=== PATIENT | male | born 1955 | race African-American/Black ===

== ENCOUNTER → 2020-09-05 14:48 | Outpatient (BNVA) | payer MEDICARE, MEDICAID, SELFPAY | PROVIDERS: PCP Internal Medicine; Visit Provider Surgery Vascular Surgery | DX: N18.6 End stage renal disease (principal) | CPT/HCPCS: 99202 ==

== ENCOUNTER 2021-01-22 06:39 | Outpatient (REF) | payer MEDICARE, MEDICAID, SELFPAY | END 2021-01-22 06:40 | disposition home or self-care (01) | LOC: HO.MMNH1L 06:39 | PROVIDERS: Visit Provider Family Medicine | DX: Z13.89 Encounter for screening for other disorder (principal) ==

== ENCOUNTER 2021-02-03 11:56 | Emergency (ER) | payer OTHER, SELFPAY ==
[2021-02-03 12:04] VITALS: BP 125/75; BP 137/55; PULSE 72; PULSE 82; RESP 16; TEMP 36.7; O2SAT 95; O2SAT 99; BMI 48.7
[2021-02-03 12:23] LABS: Glucose, Whole Blood 307 mg/dL (60-115)
--- NOTE | 2021-02-03 12:35 | PC.NURSE ---
called [facility] dialysis center in [place]. [facility] admin joe states they are unable to provide dialysis to pt. Provider aware.
--- NOTE | 2021-02-03 12:53 | ED.WOUNDLAC ---
HPI - Wound/Laceration General Chief Complaint: Wound/Laceration <Nickie Calvillo CHRISTIANA - Last Filed: 02/03/21 18:29> Stated Complaint: sore on backside <Nickie Pierresarah CHRISTIANA - Last Filed: 02/03/21 18:29> Time Seen by Provider: 02/03/21 12:20 <Nickie Pierresarah CHRISTIANA - Last Filed: 02/03/21 18:29> Source: patient, EMS, RN notes reviewed and old records reviewed <Nickie PierreoCHRISTIANA - Last Filed: 02/03/21 18:29> Mode of arrival: EMS <Nickie PierreoCHRISTIANA - Last Filed: 02/03/21 18:29> Limitations: no limitations <CHRISTIANA Damon - Last Filed: 02/03/21 18:29> History of Present Illness HPI narrative: 65-year-old with past medical history of end-stage renal disease, patient was on the way to dialysis via ambulance and during transport he complained of pain to his left buttock wound ulcer. Patient was brought here and missed his dialysis. He complains of left buttock pain, denies any SOB, CP or any other discomfort. <Nickie Pierresarah CHRISTIANA - Last Filed: 02/03/21 18:29> Related Data Home Medications: Home Medications Medication Instructions Recorded Confirmed allopurinol 100 mg tablet 100 mg PO DAILY 09/05/20 02/03/21 amlodipine 10 mg tablet 10 mg PO DAILY 09/05/20 02/03/21 carvedilol 12.5 mg tablet 12.5 mg PO BID 09/05/20 02/03/21 gabapentin 800 mg tablet 800 mg PO TID 09/05/20 02/03/21 levothyroxine 75 mcg capsule 75 mcg PO DAILY 09/05/20 02/03/21 sevelamer carbonate 800 mg tablet 2,400 mg PO TID 09/05/20 02/03/21 calcitriol 0.5 mcg PO DIRECTED 02/03/21 02/03/21 epoetin mary 20,000 unit SUBCUT 3XW 02/03/21 02/03/21 ergocalciferol (vitamin D2) 50,000 unit PO 7XD 02/03/21 02/03/21 insulin glargine [Lantus Solostar 24 unit SUBCUT BID 02/03/21 02/03/21 U-100 Insulin] multivitamin 1 tab PO DAILY 02/03/21 02/03/21 <CHRISTIANA Damon - Last Filed: 02/03/21 18:29> Allergies/Adverse Reactions: Allergies Allergy/AdvReac Type Severity Reaction Status Date / Time morphine [MORPHINE] Allergy Unknown RASH Verified 02/04/21 19:45 JESICA Inhibitors Allergy Unknown Verified 02/04/21 19:45 nicotine [From Nicoderm CQ] Allergy Unknown Verified 02/04/21 19:45 atorvastatin [From Lipitor] AdvReac Muscle Verified 02/04/21 19:45 cramps <STONEY Damon - Last Filed: 02/03/21 18:29> Review of Systems Review of Systems: Constitutional : No Weight loss, No Fever, No Chills, No Night Sweats, No Fatigue, No Malaise ENT/Mouth : No Hearing loss, No Ear Pain, No Nasal Congestion, No Sinus Pain, No Hoarseness, No sore throat, No Rhinorrhea, No Swallowing Difficulty Eyes: No Eye Pain, No Swelling, No Redness, No Foreign Body, No Discharge, No Vision Changes Cardiovascular : No Chest Pain, No SOB, No Dyspnea on Exertion, No Orthopnea, No Edema, No Palpitations Respiratory : No Cough, No Sputum, No Wheezing, No Smoke Exposure, No Dyspnea Gastrointestinal : No Nausea, No Vomiting, No Diarrhea, No Constipation, No abdominal Pain, No Hematochezia, No Melena Genitourinary : no irregular bleeding, No Dysuria, No Urinary Frequency, No Hematuria, No Urinary Incontinence, No Urgency, No Flank Pain, No Urinary Flow Changes, No Hesitancy Musculoskeletal : No joint pain, No Myalgias, No Joint Swelling Skin : No Skin Lesions, No rash, coccyx wound, right lower extremity wound Neuro : No Weakness, No Numbness, No Paresthesias, No Loss of Consciousness, No Dizziness, No Headache Psych : No Anxiety/Panic, No Depression, No SI/HI/AH/VH, No Social Issues, Heme/Lymph: No Bruising, No Bleeding,No Lymphadenopathy Endocrine : No Polyuria, No Polydipsia, No Temperature Intolerance <Nickie Pierresarah TANNER-BC - Last Filed: 02/03/21 18:29> Yes all other systems are reviewed and are negative <Nickie Pierresarah TANNER-BC - Last Filed: 02/03/21 18:29> [facility] Past Medical History Medical History: Medical History (Updated 02/03/21 @ 12:23 by Jess Crum) Anemia Chronic back pain COPD (chronic obstructive pulmonary disease) Diabetes End stage chronic kidney disease GERD (gastroesophageal reflux disease) History of infection due to Haemophilus influenzae type B HTN (hypertension) Hyperlipemia Lupus erythematosus Rheumatoid arthritis <Nickie Pierresarah RARE/ENDANGERED SPECIES SPECIALIST-BC - Last Filed: 02/03/21 18:29> Family History Family History: Family History Mother No problems noted. <Nickie D Rajinder, TANNER-BC - Last Filed: 02/03/21 18:29> Social History Social History: Social History Smoking Status: Never smoker Tobacco Type: Cigarette Use of substances other than those prescribed or required for medical reasons: No Advance Directives: No Advance Directives Information Provided: Yes <Nickie Heather Rajinder, TANNER-BC - Last Filed: 02/03/21 18:29> Physical Exam Vital Signs: Vital Signs: Last Vital Signs Temp 98.2 F 02/05/21 02:00 Pulse 85 02/05/21 02:45 Resp 18 02/05/21 02:45 BP 120/60 02/05/21 02:45 Pulse Ox 98 02/05/21 02:45 Body Mass Index 48.7 <Nickiejeff Calvillo RARE/ENDANGERED SPECIES SPECIALIST-BC - Last Filed: 02/03/21 18:29> Vital Signs: Last Vital Signs Temp 98.2 F 02/05/21 02:00 Pulse 85 02/05/21 02:45 Resp 18 02/05/21 02:45 BP 120/60 02/05/21 02:45 Pulse Ox 98 02/05/21 02:45 Body Mass Index 48.7 <HELEN Mann - Last Filed: 02/04/21 12:40> Vital Signs: Last Vital Signs Temp 98.2 F 02/05/21 02:00 Pulse 85 02/05/21 02:45 Resp 18 02/05/21 02:45 BP 120/60 02/05/21 02:45 Pulse Ox 98 02/05/21 02:45 Body Mass Index 48.7 <Christi Branch DO - Last Filed: 02/05/21 06:49> Const: General: healthy appearing, no acute distress and well developed <Nickiejeff Calvillo RARE/ENDANGERED SPECIES SPECIALIST-BC - Last Filed: 02/03/21 18:29> Nutritional Appearance: well nourished <Nickiejeff Calvillo RARE/ENDANGERED SPECIES SPECIALIST-BC - Last Filed: 02/03/21 18:29> Orientation/consciousness: patient oriented x3 <Nickiejeff Calvillo RARE/ENDANGERED SPECIES SPECIALIST-BC - Last Filed: 02/03/21 18:29> Neck: Neck: Yes normal visual inspection, Yes full ROM and Yes trachea midline <Nickie Heather Calvillo RARE/ENDANGERED SPECIES SPECIALIST-BC - Last Filed: 02/03/21 18:29> Thyroid: Thyroid normal <Nickiejeff Calvillo RARE/ENDANGERED SPECIES SPECIALIST-BC - Last Filed: 02/03/21 18:29> Resp: Auscultation: clear to auscultation bilaterally <Nickiejeff Calvillo RARE/ENDANGERED SPECIES SPECIALIST-BC - Last Filed: 02/03/21 18:29> Cardio: Rate: regular rate <Nickie Calvillo RARE/ENDANGERED SPECIES SPECIALIST-BC - Last Filed: 02/03/21 18:29> Rhythm: regular rhythm <Nickiejeff Calvillo RARE/ENDANGERED SPECIES SPECIALIST-BC - Last Filed: 02/03/21 18:29> GI: Inspection: Yes normal to inspection and No distended <Nickiejeff Calvillo RARE/ENDANGERED SPECIES SPECIALIST-BC - Last Filed: 02/03/21 18:29> Palpation (GI): No hepatosplenomegaly present <Nickie Calvillo RARE/ENDANGERED SPECIES SPECIALIST-BC - Last Filed: 02/03/21 18:29> Auscultation: normal bowel sounds <Nickie Calvillo RARE/ENDANGERED SPECIES SPECIALIST-BC - Last Filed: 02/03/21 18:29> Skin: Wounds: wounds noted (Coccyx wound left side and right side both measuring 1 centimetre stage II) skin tear LLE <TANNER Damon-BC - Last Filed: 02/03/21 18:29> Neuro: General: patient oriented x3 <Nickie TANNER Laura-BC - Last Filed: 02/03/21 18:29> Course Course Course Narrative: 65-year-old male here today for evaluation of his buttock wound. Patient reports that he gets around in his electric wheelchair, however he is not able to walk by himself. He lives home alone used to get stuff arabella to help however lately he has not been getting any help at home. We will try to get him back to dialysis, however if we will be able to accomplish that we will have to make sure that he is medically stable. I will have him be evaluated by physical therapy to make sure he is stable to go home, however if not he can go to SNF facility for short-term placement. Patient reports that he was at [facility] before and he received dialysis there <TANNER Damon-BC - Last Filed: 02/03/21 18:29> Reevaluation(s) Reevaluation #1: Unable to send him back to dialysis. We will draw a CMP and CBC to make sure the patient is stable. He denies any other symptoms except for his buttocks being sore. Area 1 cm. stage II wound right side of the coccyx close to the rectal opening. RN applied allevyn dressing. <TANNER Damon-BC - Last Filed: 02/03/21 18:29> Reevaluation #2: Patient's kidney functions back. BUN 25, creatinine 7.39. His last kidney functions were worse with BUN 38 and creatinine 8.93. Patient is not fluid overloaded. His potassium is normal at 4.9. Denies any SOB, CP, syncope. Patient was evaluated by Physical therapy. Patient is unable to go home as he needs higher level of care. Patient lives alone and has no [facility] for services for the last 2 months. Patient tries to manage at home by himself with medications and care. Patient will be bed search for short rehab so he can get his dialysis treatment and regain strength. Spoke with Case Management they will try to arrange transferred to close SNF facility. Patient is agreeable to plan of care and verbalizes understanding. <CHRISTIANA Damon - Last Filed: 02/03/21 18:29> Reevaluation #3: Patient complains of left gluteal pain. Will medicate him for pain with of oxycodone. The patient has allergy to morphine, however he reports he took oxycodone before. Awaiting for placement to skilled facility. <CHRISTIANA Damon - Last Filed: 02/03/21 18:29> Additional Reevaluation(s): Currently on bed search for skilled facility placement. Patient is stable, euvolemic. Patient denies any cardiac or respiratory symptoms. Patient looks euvolemic. Is agreeable to go to skilled facility. His blood sugar before dinner was 328, patient received 8 units of insulin subQ per sliding scale protocol. No signs and symptoms of hypo or hyperglycemia. Report given to Willa CERVANTES. <STONEY Damon - Last Filed: 02/03/21 18:29> MDM - Wound/Laceration MDM Narrative Medical decision making narrative: Patient's kidney functions are better today than at baseline. Patient missed his dialysis today. Unable to go home safely. Case Management is looking for short-term placement. Patient is euvolemic no SOB with or without exertion. Potassium 4.9 <STONEY Damon - Last Filed: 02/03/21 18:29> Lab Data Result diagrams: : 02/04/21 08:53 02/04/21 08:53 <STONEY Damon - Last Filed: 02/03/21 18:29> Labs: Lab Results 02/03/21 02/03/21 02/03/21 Range/Units 12:19 14:44 14:44 WBC 6.7 (4.8-10.8) X10*3/uL RBC 3.17 L (4.60-5.80) X10*6/uL Hgb 9.6 L (14.0-18.0) g/dl Hct 31.6 L (42-52) % MCV 99.7 H (80-98) fL MCH 30.3 (27.0-33.0) pg MCHC 30.4 L (31.0-36.0) g/dl RDW 15.9 (11.0-16.0) % Plt Count 234 (160-400) X10*3/uL MPV 10.0 (9.4-12.4) fL Immature Gran % (Auto) 0.4 (0.0-0.4) % Neut % (Auto) 49.1 (45-73) % Lymph % (Auto) 36.4 (20-40) % Nobles % (Auto) 9.8 (2-11) % Eos % (Auto) 3.9 (0-4) % Baso % (Auto) 0.4 (0-2) % Lymph # (Auto) 2.5 (1.2-4.9) X10*3/uL Nobles # (Auto) 0.7 (0.1-1.2) X10*3/uL Eos # (Auto) 0.3 (0.0-0.4) X10*3/uL Baso # (Auto) 0.0 (0.0-0.2) X10*3/uL Abs Immat Gran (auto) 0.03 (0.00-0.03) X10*3/uL Absolute Neuts (auto) 3.3 (2.0-8.3) X10*3/uL Absolute Nucleated RBC 0.000 (0.0-0.012) X10*3/uL Nucleated RBC % (auto) 0.0 (0.0-0.2) /100WBC Sodium 136 (135-145) mmol/L Potassium 4.9 (3.3-5.1) mmol/L Chloride 99 (96-108) mmol/L Carbon Dioxide 27 (22-29) mmol/L Anion Gap 15 (12-20) BUN 25 H (9-16) mg/dL Creatinine 7.39 H* (0.5-1.4) mg/dL Estim Creat Clear Calc 14.4 Estimated GFR 7 POC Glucose 307 H (60-115) mg/dL Random Glucose 385 H* (60-115) mg/dL Calcium 9.1 (8.4-10.2) mg/dL Total Bilirubin 0.7 (0.0-1.0) mg/dL AST 9 (5-37) U/L ALT 9 (0-40) U/L Alkaline Phosphatase 78 (39-117) U/L Total Protein 6.5 (6.5-8.0) g/dL Albumin 3.1 L (3.5-5.0) g/dL COVID-19 (DOROTEO) (Negative) COVID-19 Clin Com 02/03/21 02/04/21 02/04/21 Range/Units 16:43 01:05 01:21 WBC (4.8-10.8) X10*3/uL RBC (4.60-5.80) X10*6/uL Hgb (14.0-18.0) g/dl Hct (42-52) % MCV (80-98) fL MCH (27.0-33.0) pg MCHC (31.0-36.0) g/dl RDW (11.0-16.0) % Plt Count (160-400) X10*3/uL MPV (9.4-12.4) fL Immature Gran % (Auto) (0.0-0.4) % Neut % (Auto) (45-73) % Lymph % (Auto) (20-40) % Nobles % (Auto) (2-11) % Eos % (Auto) (0-4) % Baso % (Auto) (0-2) % Lymph # (Auto) (1.2-4.9) X10*3/uL Nobles # (Auto) (0.1-1.2) X10*3/uL Eos # (Auto) (0.0-0.4) X10*3/uL Baso # (Auto) (0.0-0.2) X10*3/uL Abs Immat Gran (auto) (0.00-0.03) X10*3/uL Absolute Neuts (auto) (2.0-8.3) X10*3/uL Absolute Nucleated RBC (0.0-0.012) X10*3/uL Nucleated RBC % (auto) (0.0-0.2) /100WBC Sodium (135-145) mmol/L Potassium (3.3-5.1) mmol/L Chloride (96-108) mmol/L Carbon Dioxide (22-29) mmol/L Anion Gap (12-20) BUN (9-16) mg/dL Creatinine (0.5-1.4) mg/dL Estim Creat Clear Calc Estimated GFR POC Glucose 328 H 363 H* (60-115) mg/dL Random Glucose (60-115) mg/dL Calcium (8.4-10.2) mg/dL Total Bilirubin (0.0-1.0) mg/dL AST (5-37) U/L ALT (0-40) U/L Alkaline Phosphatase (39-117) U/L Total Protein (6.5-8.0) g/dL Albumin (3.5-5.0) g/dL COVID-19 (DOROTEO) Negative (Negative) COVID-19 Clin Com See Note 02/04/21 02/04/21 02/04/21 Range/Units 08:53 08:53 12:40 WBC 6.5 (4.8-10.8) X10*3/uL RBC 3.21 L (4.60-5.80) X10*6/uL Hgb 9.8 L (14.0-18.0) g/dl Hct 31.8 L (42-52) % MCV 99.1 H (80-98) fL MCH 30.5 (27.0-33.0) pg MCHC 30.8 L (31.0-36.0) g/dl RDW 15.7 (11.0-16.0) % Plt Count 202 (160-400) X10*3/uL MPV 11.0 (9.4-12.4) fL Immature Gran % (Auto) 0.9 H (0.0-0.4) % Neut % (Auto) 54.5 (45-73) % Lymph % (Auto) 30.4 (20-40) % Nobles % (Auto) 9.2 (2-11) % Eos % (Auto) 4.5 H (0-4) % Baso % (Auto) 0.5 (0-2) % Lymph # (Auto) 2.0 (1.2-4.9) X10*3/uL Nobles # (Auto) 0.6 (0.1-1.2) X10*3/uL Eos # (Auto) 0.3 (0.0-0.4) X10*3/uL Baso # (Auto) 0.0 (0.0-0.2) X10*3/uL Abs Immat Gran (auto) 0.06 H (0.00-0.03) X10*3/uL Absolute Neuts (auto) 3.6 (2.0-8.3) X10*3/uL Absolute Nucleated RBC 0.000 (0.0-0.012) X10*3/uL Nucleated RBC % (auto) 0.0 (0.0-0.2) /100WBC Sodium 133 L (135-145) mmol/L Potassium 5.7 H (3.3-5.1) mmol/L Chloride 99 (96-108) mmol/L Carbon Dioxide 22 (22-29) mmol/L Anion Gap 18 (12-20) BUN 29 H (9-16) mg/dL Creatinine 8.30 H* (0.5-1.4) mg/dL Estim Creat Clear Calc 12.8 Estimated GFR 7 POC Glucose 349 H (60-115) mg/dL Random Glucose 477 H* (60-115) mg/dL Calcium 8.7 (8.4-10.2) mg/dL Total Bilirubin 0.6 (0.0-1.0) mg/dL AST 9 (5-37) U/L ALT 8 (0-40) U/L Alkaline Phosphatase 80 (39-117) U/L Total Protein 6.3 L (6.5-8.0) g/dL Albumin 2.9 L (3.5-5.0) g/dL COVID-19 (DOROTEO) (Negative) COVID-19 Clin Com 02/04/21 02/04/21 02/04/21 Range/Units 17:58 21:13 22:41 WBC (4.8-10.8) X10*3/uL RBC (4.60-5.80) X10*6/uL Hgb (14.0-18.0) g/dl Hct (42-52) % MCV (80-98) fL MCH (27.0-33.0) pg MCHC (31.0-36.0) g/dl RDW (11.0-16.0) % Plt Count (160-400) X10*3/uL MPV (9.4-12.4) fL Immature Gran % (Auto) (0.0-0.4) % Neut % (Auto) (45-73) % Lymph % (Auto) (20-40) % Nobles % (Auto) (2-11) % Eos % (Auto) (0-4) % Baso % (Auto) (0-2) % Lymph # (Auto) (1.2-4.9) X10*3/uL Nobles # (Auto) (0.1-1.2) X10*3/uL Eos # (Auto) (0.0-0.4) X10*3/uL Baso # (Auto) (0.0-0.2) X10*3/uL Abs Immat Gran (auto) (0.00-0.03) X10*3/uL Absolute Neuts (auto) (2.0-8.3) X10*3/uL Absolute Nucleated RBC (0.0-0.012) X10*3/uL Nucleated RBC % (auto) (0.0-0.2) /100WBC Sodium (135-145) mmol/L Potassium (3.3-5.1) mmol/L Chloride (96-108) mmol/L Carbon Dioxide (22-29) mmol/L Anion Gap (12-20) BUN (9-16) mg/dL Creatinine (0.5-1.4) mg/dL Estim Creat Clear Calc Estimated GFR POC Glucose 405 H* 391 H* 336 H (60-115) mg/dL Random Glucose (60-115) mg/dL Calcium (8.4-10.2) mg/dL Total Bilirubin (0.0-1.0) mg/dL AST (5-37) U/L ALT (0-40) U/L Alkaline Phosphatase (39-117) U/L Total Protein (6.5-8.0) g/dL Albumin (3.5-5.0) g/dL COVID-19 (DOROTEO) (Negative) COVID-19 Clin Com <Nickie Calvillo, RARE/ENDANGERED SPECIES SPECIALIST-BC - Last Filed: 02/03/21 18:29> Lab Results 02/03/21 02/03/21 02/03/21 Range/Units 12:19 14:44 14:44 WBC 6.7 (4.8-10.8) X10*3/uL RBC 3.17 L (4.60-5.80) X10*6/uL Hgb 9.6 L (14.0-18.0) g/dl Hct 31.6 L (42-52) % MCV 99.7 H (80-98) fL MCH 30.3 (27.0-33.0) pg MCHC 30.4 L (31.0-36.0) g/dl RDW 15.9 (11.0-16.0) % Plt Count 234 (160-400) X10*3/uL MPV 10.0 (9.4-12.4) fL Immature Gran % (Auto) 0.4 (0.0-0.4) % Neut % (Auto) 49.1 (45-73) % Lymph % (Auto) 36.4 (20-40) % Nobles % (Auto) 9.8 (2-11) % Eos % (Auto) 3.9 (0-4) % Baso % (Auto) 0.4 (0-2) % Lymph # (Auto) 2.5 (1.2-4.9) X10*3/uL Nobles # (Auto) 0.7 (0.1-1.2) X10*3/uL Eos # (Auto) 0.3 (0.0-0.4) X10*3/uL Baso # (Auto) 0.0 (0.0-0.2) X10*3/uL Abs Immat Gran (auto) 0.03 (0.00-0.03) X10*3/uL Absolute Neuts (auto) 3.3 (2.0-8.3) X10*3/uL Absolute Nucleated RBC 0.000 (0.0-0.012) X10*3/uL Nucleated RBC % (auto) 0.0 (0.0-0.2) /100WBC Sodium 136 (135-145) mmol/L Potassium 4.9 (3.3-5.1) mmol/L Chloride 99 (96-108) mmol/L Carbon Dioxide 27 (22-29) mmol/L Anion Gap 15 (12-20) BUN 25 H (9-16) mg/dL Creatinine 7.39 H* (0.5-1.4) mg/dL Estim Creat Clear Calc 14.4 Estimated GFR 7 POC Glucose 307 H (60-115) mg/dL Random Glucose 385 H* (60-115) mg/dL Calcium 9.1 (8.4-10.2) mg/dL Total Bilirubin 0.7 (0.0-1.0) mg/dL AST 9 (5-37) U/L ALT 9 (0-40) U/L Alkaline Phosphatase 78 (39-117) U/L Total Protein 6.5 (6.5-8.0) g/dL Albumin 3.1 L (3.5-5.0) g/dL COVID-19 (DOROTEO) (Negative) COVID-19 Clin Com 02/03/21 02/04/21 02/04/21 Range/Units 16:43 01:05 01:21 WBC (4.8-10.8) X10*3/uL RBC (4.60-5.80) X10*6/uL Hgb (14.0-18.0) g/dl Hct (42-52) % MCV (80-98) fL MCH (27.0-33.0) pg MCHC (31.0-36.0) g/dl RDW (11.0-16.0) % Plt Count (160-400) X10*3/uL MPV (9.4-12.4) fL Immature Gran % (Auto) (0.0-0.4) % Neut % (Auto) (45-73) % Lymph % (Auto) (20-40) % Nobles % (Auto) (2-11) % Eos % (Auto) (0-4) % Baso % (Auto) (0-2) % Lymph # (Auto) (1.2-4.9) X10*3/uL Nobles # (Auto) (0.1-1.2) X10*3/uL Eos # (Auto) (0.0-0.4) X10*3/uL Baso # (Auto) (0.0-0.2) X10*3/uL Abs Immat Gran (auto) (0.00-0.03) X10*3/uL Absolute Neuts (auto) (2.0-8.3) X10*3/uL Absolute Nucleated RBC (0.0-0.012) X10*3/uL Nucleated RBC % (auto) (0.0-0.2) /100WBC Sodium (135-145) mmol/L Potassium (3.3-5.1) mmol/L Chloride (96-108) mmol/L Carbon Dioxide (22-29) mmol/L Anion Gap (12-20) BUN (9-16) mg/dL Creatinine (0.5-1.4) mg/dL Estim Creat Clear Calc Estimated GFR POC Glucose 328 H 363 H* (60-115) mg/dL Random Glucose (60-115) mg/dL Calcium (8.4-10.2) mg/dL Total Bilirubin (0.0-1.0) mg/dL AST (5-37) U/L ALT (0-40) U/L Alkaline Phosphatase (39-117) U/L Total Protein (6.5-8.0) g/dL Albumin (3.5-5.0) g/dL COVID-19 (DOROTEO) Negative (Negative) COVID-19 Clin Com See Note 02/04/21 02/04/21 02/04/21 Range/Units 08:53 08:53 12:40 WBC 6.5 (4.8-10.8) X10*3/uL RBC 3.21 L (4.60-5.80) X10*6/uL Hgb 9.8 L (14.0-18.0) g/dl Hct 31.8 L (42-52) % MCV 99.1 H (80-98) fL MCH 30.5 (27.0-33.0) pg MCHC 30.8 L (31.0-36.0) g/dl RDW 15.7 (11.0-16.0) % Plt Count 202 (160-400) X10*3/uL MPV 11.0 (9.4-12.4) fL Immature Gran % (Auto) 0.9 H (0.0-0.4) % Neut % (Auto) 54.5 (45-73) % Lymph % (Auto) 30.4 (20-40) % Nobles % (Auto) 9.2 (2-11) % Eos % (Auto) 4.5 H (0-4) % Baso % (Auto) 0.5 (0-2) % Lymph # (Auto) 2.0 (1.2-4.9) X10*3/uL Nobles # (Auto) 0.6 (0.1-1.2) X10*3/uL Eos # (Auto) 0.3 (0.0-0.4) X10*3/uL Baso # (Auto) 0.0 (0.0-0.2) X10*3/uL Abs Immat Gran (auto) 0.06 H (0.00-0.03) X10*3/uL Absolute Neuts (auto) 3.6 (2.0-8.3) X10*3/uL Absolute Nucleated RBC 0.000 (0.0-0.012) X10*3/uL Nucleated RBC % (auto) 0.0 (0.0-0.2) /100WBC Sodium 133 L (135-145) mmol/L Potassium 5.7 H (3.3-5.1) mmol/L Chloride 99 (96-108) mmol/L Carbon Dioxide 22 (22-29) mmol/L Anion Gap 18 (12-20) BUN 29 H (9-16) mg/dL Creatinine 8.30 H* (0.5-1.4) mg/dL Estim Creat Clear Calc 12.8 Estimated GFR 7 POC Glucose 349 H (60-115) mg/dL Random Glucose 477 H* (60-115) mg/dL Calcium 8.7 (8.4-10.2) mg/dL Total Bilirubin 0.6 (0.0-1.0) mg/dL AST 9 (5-37) U/L ALT 8 (0-40) U/L Alkaline Phosphatase 80 (39-117) U/L Total Protein 6.3 L (6.5-8.0) g/dL Albumin 2.9 L (3.5-5.0) g/dL COVID-19 (DOROTEO) (Negative) COVID-19 Clin Com 02/04/21 02/04/21 02/04/21 Range/Units 17:58 21:13 22:41 WBC (4.8-10.8) X10*3/uL RBC (4.60-5.80) X10*6/uL Hgb (14.0-18.0) g/dl Hct (42-52) % MCV (80-98) fL MCH (27.0-33.0) pg MCHC (31.0-36.0) g/dl RDW (11.0-16.0) % Plt Count (160-400) X10*3/uL MPV (9.4-12.4) fL Immature Gran % (Auto) (0.0-0.4) % Neut % (Auto) (45-73) % Lymph % (Auto) (20-40) % Nobles % (Auto) (2-11) % Eos % (Auto) (0-4) % Baso % (Auto) (0-2) % Lymph # (Auto) (1.2-4.9) X10*3/uL Nobles # (Auto) (0.1-1.2) X10*3/uL Eos # (Auto) (0.0-0.4) X10*3/uL Baso # (Auto) (0.0-0.2) X10*3/uL Abs Immat Gran (auto) (0.00-0.03) X10*3/uL Absolute Neuts (auto) (2.0-8.3) X10*3/uL Absolute Nucleated RBC (0.0-0.012) X10*3/uL Nucleated RBC % (auto) (0.0-0.2) /100WBC Sodium (135-145) mmol/L Potassium (3.3-5.1) mmol/L Chloride (96-108) mmol/L Carbon Dioxide (22-29) mmol/L Anion Gap (12-20) BUN (9-16) mg/dL Creatinine (0.5-1.4) mg/dL Estim Creat Clear Calc Estimated GFR POC Glucose 405 H* 391 H* 336 H (60-115) mg/dL Random Glucose (60-115) mg/dL Calcium (8.4-10.2) mg/dL Total Bilirubin (0.0-1.0) mg/dL AST (5-37) U/L ALT (0-40) U/L Alkaline Phosphatase (39-117) U/L Total Protein (6.5-8.0) g/dL Albumin (3.5-5.0) g/dL COVID-19 ([facility]) (Negative) COVID-19 Clin Com <HELEN Mann - Last Filed: 02/04/21 12:40> Lab Results 02/03/21 02/03/21 02/03/21 Range/Units 12:19 14:44 14:44 WBC 6.7 (4.8-10.8) X10*3/uL RBC 3.17 L (4.60-5.80) X10*6/uL Hgb 9.6 L (14.0-18.0) g/dl Hct 31.6 L (42-52) % MCV 99.7 H (80-98) fL MCH 30.3 (27.0-33.0) pg MCHC 30.4 L (31.0-36.0) g/dl RDW 15.9 (11.0-16.0) % Plt Count 234 (160-400) X10*3/uL MPV 10.0 (9.4-12.4) fL Immature Gran % (Auto) 0.4 (0.0-0.4) % Neut % (Auto) 49.1 (45-73) % Lymph % (Auto) 36.4 (20-40) % Nobles % (Auto) 9.8 (2-11) % Eos % (Auto) 3.9 (0-4) % Baso % (Auto) 0.4 (0-2) % Lymph # (Auto) 2.5 (1.2-4.9) X10*3/uL Nobles # (Auto) 0.7 (0.1-1.2) X10*3/uL Eos # (Auto) 0.3 (0.0-0.4) X10*3/uL Baso # (Auto) 0.0 (0.0-0.2) X10*3/uL Abs Immat Gran (auto) 0.03 (0.00-0.03) X10*3/uL Absolute Neuts (auto) 3.3 (2.0-8.3) X10*3/uL Absolute Nucleated RBC 0.000 (0.0-0.012) X10*3/uL Nucleated RBC % (auto) 0.0 (0.0-0.2) /100WBC Sodium 136 (135-145) mmol/L Potassium 4.9 (3.3-5.1) mmol/L Chloride 99 (96-108) mmol/L Carbon Dioxide 27 (22-29) mmol/L Anion Gap 15 (12-20) BUN 25 H (9-16) mg/dL Creatinine 7.39 H* (0.5-1.4) mg/dL Estim Creat Clear Calc 14.4 Estimated GFR 7 POC Glucose 307 H (60-115) mg/dL Random Glucose 385 H* (60-115) mg/dL Calcium 9.1 (8.4-10.2) mg/dL Total Bilirubin 0.7 (0.0-1.0) mg/dL AST 9 (5-37) U/L ALT 9 (0-40) U/L Alkaline Phosphatase 78 (39-117) U/L Total Protein 6.5 (6.5-8.0) g/dL Albumin 3.1 L (3.5-5.0) g/dL COVID-19 ([facility]) (Negative) COVID-19 Clin Com 02/03/21 02/04/21 02/04/21 Range/Units 16:43 01:05 01:21 WBC (4.8-10.8) X10*3/uL RBC (4.60-5.80) X10*6/uL Hgb (14.0-18.0) g/dl Hct (42-52) % MCV (80-98) fL MCH (27.0-33.0) pg MCHC (31.0-36.0) g/dl RDW (11.0-16.0) % Plt Count (160-400) X10*3/uL MPV (9.4-12.4) fL Immature Gran % (Auto) (0.0-0.4) % Neut % (Auto) (45-73) % Lymph % (Auto) (20-40) % Nobles % (Auto) (2-11) % Eos % (Auto) (0-4) % Baso % (Auto) (0-2) % Lymph # (Auto) (1.2-4.9) X10*3/uL Nobles # (Auto) (0.1-1.2) X10*3/uL Eos # (Auto) (0.0-0.4) X10*3/uL Baso # (Auto) (0.0-0.2) X10*3/uL Abs Immat Gran (auto) (0.00-0.03) X10*3/uL Absolute Neuts (auto) (2.0-8.3) X10*3/uL Absolute Nucleated RBC (0.0-0.012) X10*3/uL Nucleated RBC % (auto) (0.0-0.2) /100WBC Sodium (135-145) mmol/L Potassium (3.3-5.1) mmol/L Chloride (96-108) mmol/L Carbon Dioxide (22-29) mmol/L Anion Gap (12-20) BUN (9-16) mg/dL Creatinine (0.5-1.4) mg/dL Estim Creat Clear Calc Estimated GFR POC Glucose 328 H 363 H* (60-115) mg/dL Random Glucose (60-115) mg/dL Calcium (8.4-10.2) mg/dL Total Bilirubin (0.0-1.0) mg/dL AST (5-37) U/L ALT (0-40) U/L Alkaline Phosphatase (39-117) U/L Total Protein (6.5-8.0) g/dL Albumin (3.5-5.0) g/dL COVID-19 ([facility]) Negative (Negative) COVID-19 Clin Com See Note 02/04/21 02/04/21 02/04/21 Range/Units 08:53 08:53 12:40 WBC 6.5 (4.8-10.8) X10*3/uL RBC 3.21 L (4.60-5.80) X10*6/uL Hgb 9.8 L (14.0-18.0) g/dl Hct 31.8 L (42-52) % MCV 99.1 H (80-98) fL MCH 30.5 (27.0-33.0) pg MCHC 30.8 L (31.0-36.0) g/dl RDW 15.7 (11.0-16.0) % Plt Count 202 (160-400) X10*3/uL MPV 11.0 (9.4-12.4) fL Immature Gran % (Auto) 0.9 H (0.0-0.4) % Neut % (Auto) 54.5 (45-73) % Lymph % (Auto) 30.4 (20-40) % Nobles % (Auto) 9.2 (2-11) % Eos % (Auto) 4.5 H (0-4) % Baso % (Auto) 0.5 (0-2) % Lymph # (Auto) 2.0 (1.2-4.9) X10*3/uL Nobles # (Auto) 0.6 (0.1-1.2) X10*3/uL Eos # (Auto) 0.3 (0.0-0.4) X10*3/uL Baso # (Auto) 0.0 (0.0-0.2) X10*3/uL Abs Immat Gran (auto) 0.06 H (0.00-0.03) X10*3/uL Absolute Neuts (auto) 3.6 (2.0-8.3) X10*3/uL Absolute Nucleated RBC 0.000 (0.0-0.012) X10*3/uL Nucleated RBC % (auto) 0.0 (0.0-0.2) /100WBC Sodium 133 L (135-145) mmol/L Potassium 5.7 H (3.3-5.1) mmol/L Chloride 99 (96-108) mmol/L Carbon Dioxide 22 (22-29) mmol/L Anion Gap 18 (12-20) BUN 29 H (9-16) mg/dL Creatinine 8.30 H* (0.5-1.4) mg/dL Estim Creat Clear Calc 12.8 Estimated GFR 7 POC Glucose 349 H (60-115) mg/dL Random Glucose 477 H* (60-115) mg/dL Calcium 8.7 (8.4-10.2) mg/dL Total Bilirubin 0.6 (0.0-1.0) mg/dL AST 9 (5-37) U/L ALT 8 (0-40) U/L Alkaline Phosphatase 80 (39-117) U/L Total Protein 6.3 L (6.5-8.0) g/dL Albumin 2.9 L (3.5-5.0) g/dL COVID-19 (DOROTEO) (Negative) COVID-19 Clin Com 02/04/21 02/04/21 02/04/21 Range/Units 17:58 21:13 22:41 WBC (4.8-10.8) X10*3/uL RBC (4.60-5.80) X10*6/uL Hgb (14.0-18.0) g/dl Hct (42-52) % MCV (80-98) fL MCH (27.0-33.0) pg MCHC (31.0-36.0) g/dl RDW (11.0-16.0) % Plt Count (160-400) X10*3/uL MPV (9.4-12.4) fL Immature Gran % (Auto) (0.0-0.4) % Neut % (Auto) (45-73) % Lymph % (Auto) (20-40) % Nobles % (Auto) (2-11) % Eos % (Auto) (0-4) % Baso % (Auto) (0-2) % Lymph # (Auto) (1.2-4.9) X10*3/uL Nobles # (Auto) (0.1-1.2) X10*3/uL Eos # (Auto) (0.0-0.4) X10*3/uL Baso # (Auto) (0.0-0.2) X10*3/uL Abs Immat Gran (auto) (0.00-0.03) X10*3/uL Absolute Neuts (auto) (2.0-8.3) X10*3/uL Absolute Nucleated RBC (0.0-0.012) X10*3/uL Nucleated RBC % (auto) (0.0-0.2) /100WBC Sodium (135-145) mmol/L Potassium (3.3-5.1) mmol/L Chloride (96-108) mmol/L Carbon Dioxide (22-29) mmol/L Anion Gap (12-20) BUN (9-16) mg/dL Creatinine (0.5-1.4) mg/dL Estim Creat Clear Calc Estimated GFR POC Glucose 405 H* 391 H* 336 H (60-115) mg/dL Random Glucose (60-115) mg/dL Calcium (8.4-10.2) mg/dL Total Bilirubin (0.0-1.0) mg/dL AST (5-37) U/L ALT (0-40) U/L Alkaline Phosphatase (39-117) U/L Total Protein (6.5-8.0) g/dL Albumin (3.5-5.0) g/dL COVID-19 (DOROTEO) (Negative) COVID-19 Clin Com <Christi Branch DO - Last Filed: 02/05/21 06:49> Discharge Plan Discharge Prescriptions: No Action calcitriol 0.25 mcg Capsule 0.5 mcg PO DIRECTED RF: 0 ergocalciferol (vitamin D2) 50,000 unit Tablet 50,000 unit PO 7XD RF: 0 Lantus Solostar U-100 Insulin 100 unit/mL (3 mL) Insulin Pen 24 unit SUBCUT BID RF: 0 multivitamin Tablet 1 tab PO DAILY RF: 0 epoetin mary 20,000 unit/mL Solution 20,000 unit SUBCUT 3XW RF: 0 <TANNER Damon-BC - Last Filed: 02/03/21 18:29>
--- NOTE | 2021-02-03 13:00 | PC.NURSE ---
1cm decubitus ulcer noted to L buttock and 1-2cm decubitus ulcer noted intergluteal cleft- allenvyn foam dressing applied to both. 2-3cm ulceration noted on R card xeroform applied and wrapped.
[2021-02-03 13:51] VITALS: BP 123/54; PULSE 84; RESP 20; TEMP 36.7; O2SAT 99
--- NOTE | 2021-02-03 14:26 | PC.NURSE ---
Pt alert and oriented, arrived to ED via ambulance. Pt reports refusing dialysis today due to having sore on bottom. R chest Permacath in tact, clamps on. Home O2 3L NC, currently satting 89-90% R/A. 95-98% 2L NC. Pt refused to have IV placed, awaiting lab results at this time.
[2021-02-03 14:48] LABS: MANUAL DIFF FLAG NO
[2021-02-03 14:49] LABS: Basophils Percent Auto 0.4 % (0-2); Eosinophils Absolute Auto 0.3 X10*3/uL (0.0-0.4); Eosinophils Percent Auto 3.9 % (0-4); Hematocrit 31.6 % (42-52); Hemoglobin 9.6 g/dl (14.0-18.0); Imm Gran Abs Auto 0.03 X10*3/uL (0.00-0.03); Imm Gran Pct Auto 0.4 % (0.0-0.4); Lymphocytes Absolute Auto 2.5 X10*3/uL (1.2-4.9); Lymphocytes Percent Auto 36.4 % (20-40); Mean Corpuscular HGB Conc 30.4 g/dl (31.0-36.0); Mean Corpuscular Hemoglobin 30.3 pg (27.0-33.0); Mean Corpuscular Volume 99.7 fL (80-98); Monocytes Absolute Auto 0.7 X10*3/uL (0.1-1.2); Monocytes Percent Auto 9.8 % (2-11); Neutrophils Absolute Auto 3.3 X10*3/uL (2.0-8.3); Neutrophils Percent Auto 49.1 % (45-73); Platelet Count 234 X10*3/uL (160-400); Red Blood Count 3.17 X10*6/uL (4.60-5.80); Red Cell Distribution Width 15.9 % (11.0-16.0); White Blood Count 6.7 X10*3/uL (4.8-10.8)
[2021-02-03 15:27] LABS: Alanine Aminotransferase 9 U/L (0-40); Albumin Level 3.1 g/dL (3.5-5.0); Alkaline Phosphatase 78 U/L (39-117); Anion Gap 15 (12-20); Aspartate Amino Transferase 9 U/L (5-37); Bilirubin Total 0.7 mg/dL (0.0-1.0); Blood Urea Nitrogen 25 mg/dL (9-16); Calcium 9.1 mg/dL (8.4-10.2); Carbon Dioxide 27 mmol/L (22-29); Chloride 99 mmol/L (96-108); Creatinine Clr Calc Pharmacy 14.4; Estimated Glomerular Filt Rate 7; Glucose Random 385 mg/dL (60-115); Potassium 4.9 mmol/L (3.3-5.1); Sodium 136 mmol/L (135-145); Total Protein 6.5 g/dL (6.5-8.0)
[2021-02-03 16:00] VITALS: BP 121/50; PULSE 85; RESP 20; TEMP 36.6; O2SAT 97
[2021-02-03 16:47] LABS: Glucose, Whole Blood 328 mg/dL (60-115)
[2021-02-03] MEDS: Insulin Lispro 100 UNIT/ML 3 ML VIAL SUBCUT (16:50)
[2021-02-03] MEDS: oxyCODONE HCl Immed Release 5 MG TABLET PO (16:51)
--- NOTE | 2021-02-03 16:53 | PC.NURSE ---
Pty given insulin per SLIding scale and oxycdone for 10/10 soreness to buttock. Pt repositioned to left side and dsg placed on arrival remains intact
[2021-02-03 19:04] VITALS: BP 103/44; PULSE 84; RESP 15; TEMP 36.4; O2SAT 95
--- NOTE | 2021-02-03 20:26 | PC.NURSE ---
PT SLEEPING IN STRETCHER IN NAD. PT WAKES TO VOICE, RESPIRATIONS EASY, N/L. SKIN W/D. VS OBTAINED. WILL CONTINUE TO MONITOR PT.
[2021-02-03 22:00] VITALS: BP 125/67; PULSE 85; RESP 22; TEMP 36.5; O2SAT 96
[2021-02-03] MEDS: Acetaminophen 325 MG TABLET 650 MG PO (23:02)
[2021-02-04] VITALS (12 sets, daily range): BP systolic 113–145; BP diastolic 51–74; PULSE 9–88; RESP 16–20; TEMP 36.4–36.9; O2SAT 3–99
[2021-02-04 01:26] LABS: Glucose, Whole Blood 363 mg/dL (60-115)
--- NOTE | 2021-02-04 01:33 | PC.NURSE ---
PA AWARE OF POC -363. PT IS NOT EATING/DRINKING. WILL CONTINUE TO MONITOR PT. PT SLEEPING, WAKES TO VOICE. RESPIRATIONS EASY, N/L. SKIN W/D. WILL CONTINUE TO MONITOR PT.
[2021-02-04 01:47] LABS: COVID-19 Test Negative (Negative); IDNOW Serial# 08D9AD1C
--- NOTE | 2021-02-04 03:05 | PC.NURSE ---
PT WAKES TO VOICE. RESPIRATIONS EASY, N/L. SKIN W/D. PT AWAITING FOR CASE MGT IN AM.
--- NOTE | 2021-02-04 06:07 | PC.NURSE ---
PT REPOSITIONED AT THIS TIME. PT DENIES ANY COMPLAINTS. PT WAKES TO VOICE. RESPIRATIONS EASY, N/L. SKIN W/D. PT AWAITING FOR CASE MGT IN AM. VS OBTAINED. WILL CONTINUE TO MONITOR PT.
--- NOTE | 2021-02-04 08:13 | PC.NURSE ---
positioned to r side after eating breakfast, med rec processed by
[2021-02-04] MEDS: Insulin Glargine,Hum.rec.anlog 100 UNIT/ML 10 ML VIAL 24 UNIT SUBCUT ×2 (08:36→21:40)
[2021-02-04] MEDS: Multivitamin TABLET 1 TAB PO ×2 (08:36→08:38)
[2021-02-04] MEDS: Ergocalciferol (Vitamin D2) 1,250 MCG CAPSULE 1250 MCG PO (09:04)
[2021-02-04 09:08] LABS: MANUAL DIFF FLAG NO
[2021-02-04 09:12] LABS: Basophils Percent Auto 0.5 % (0-2); Eosinophils Absolute Auto 0.3 X10*3/uL (0.0-0.4); Eosinophils Percent Auto 4.5 % (0-4); Hematocrit 31.8 % (42-52); Hemoglobin 9.8 g/dl (14.0-18.0); Imm Gran Abs Auto 0.06 X10*3/uL (0.00-0.03); Imm Gran Pct Auto 0.9 % (0.0-0.4); Lymphocytes Percent Auto 30.4 % (20-40); Mean Corpuscular HGB Conc 30.8 g/dl (31.0-36.0); Mean Corpuscular Hemoglobin 30.5 pg (27.0-33.0); Mean Corpuscular Volume 99.1 fL (80-98); Monocytes Absolute Auto 0.6 X10*3/uL (0.1-1.2); Monocytes Percent Auto 9.2 % (2-11); Neutrophils Absolute Auto 3.6 X10*3/uL (2.0-8.3); Neutrophils Percent Auto 54.5 % (45-73); Platelet Count 202 X10*3/uL (160-400); Red Blood Count 3.21 X10*6/uL (4.60-5.80); Red Cell Distribution Width 15.7 % (11.0-16.0); White Blood Count 6.5 X10*3/uL (4.8-10.8)
--- NOTE | 2021-02-04 09:13 | PC.NURSE ---
lab to bedside for bloodwork, mult attempts to get blood unsuccessful, lab was able to get a small amt, pt wants rehab/snf
[2021-02-04 09:49] LABS: Alanine Aminotransferase 8 U/L (0-40); Albumin Level 2.9 g/dL (3.5-5.0); Alkaline Phosphatase 80 U/L (39-117); Anion Gap 18 (12-20); Aspartate Amino Transferase 9 U/L (5-37); Bilirubin Total 0.6 mg/dL (0.0-1.0); Blood Urea Nitrogen 29 mg/dL (9-16); Calcium 8.7 mg/dL (8.4-10.2); Carbon Dioxide 22 mmol/L (22-29); Chloride 99 mmol/L (96-108); Creatinine Clr Calc Pharmacy 12.8; Estimated Glomerular Filt Rate 7; Glucose Random 477 mg/dL (60-115); Potassium 5.7 mmol/L (3.3-5.1); Sodium 133 mmol/L (135-145); Total Protein 6.3 g/dL (6.5-8.0)
--- NOTE | 2021-02-04 10:44 | PC.NURSE ---
pt moved to a hospital bed, nad
--- NOTE | 2021-02-04 10:57 | MHC.CM.ED ---
LATE ENTRY FROM 02/03/2021 AT 15:00: Patient came to ER due to coccyx wound. Patient was at HD at [facility] in [address] and was having too much pain at the wound site to seat for HD. Physical therapy eval is pending. Patient has been to [facility] in the past. Referral made via [employer]. Continue to monitor for d/c needs.
--- NOTE | 2021-02-04 11:36 | ECG_ITS ---
Test Reason : hyperkalemia Blood Pressure : / mmHG Vent. Rate : 085 BPM Atrial Rate : 085 BPM P-R Int : 182 ms QRS Dur : 150 ms QT Int : 432 ms P-R-T Axes : 044 070 025 degrees QTc Int : 514 ms Normal sinus rhythm Right bundle branch block Abnormal ECG No previous ECGs available Referred By: Levon Elena Electronically Signed By:ZELDA COLE
--- NOTE | 2021-02-04 11:41 | PC.NURSE ---
First contact with patient. Very small shallow wound on right buttocks. dressing CDI. skin tear on right card redressed. moderate amnt serouse fluid frm RLE. Pt states he's unable t ambulate at baseline though he's not sure why. ? leg weakness and spinal stenosis. Pt has poor bedmobility. scaly dry skin on BLEs including toes. awaits disposition following recent labs and Potassium of 5.7. New dressing on dialysis port.
--- NOTE | 2021-02-04 12:13 | PC.NURSE ---
pt is refusing iv at this time. rn explaining risks of letting Potassium level remain high or rise. pt continues to refuse.
--- NOTE | 2021-02-04 12:26 | PC.NURSE ---
Provider at bedside to discuss plan of care. Pt continues to refuse IV but willing to be admitted for dialysis.
[2021-02-04 12:44] LABS: Glucose, Whole Blood 349 mg/dL (60-115)
--- NOTE | 2021-02-04 13:12 | MHC.CM.ED ---
[facility] will not be able to offer a bed before tomorrow. Patient, Marissa BISHOP and Gerald CERVANTES aware. Continue to monitor for d/c needs.
[2021-02-04] MEDS: Sodium Polystyrene Sulfon/Sorb 15 GM/60 ML ORAL.SUSP 60 GM PO (13:21)
--- NOTE | 2021-02-04 16:53 | PC.NURSE ---
THIS PCT ATTEMPT DO DO BLOOD SUGAR TEST ,AND PATIENT REFUSED ,DARIO RIDER AWARE .
[2021-02-04 18:10] LABS: Glucose, Whole Blood 405 mg/dL (60-115)
[2021-02-04] MEDS: Insulin Lispro 100 UNIT/ML 3 ML VIAL SUBCUT ×2 (19:02→21:42)
--- NOTE | 2021-02-04 19:45 | PC.NURSE ---
patient was repositioned at this time, reports being more comfortable, bed was positioned to be able to watch TV
[2021-02-04 21:17] LABS: Glucose, Whole Blood 391 mg/dL (60-115)
[2021-02-04] MEDS: Acetaminophen 325 MG TABLET 650 MG PO (22:41)
[2021-02-04 22:45] LABS: Glucose, Whole Blood 336 mg/dL (60-115)
[2021-02-05] VITALS: RESP 16
[2021-02-05 02:00] VITALS: BP 152/66; PULSE 83; RESP 18; TEMP 36.8; O2SAT 97
[2021-02-05 02:45] VITALS: BP 120/60; PULSE 85; RESP 18; O2SAT 98
--- NOTE | 2021-02-05 04:00 | PC.NURSE ---
patient reports that the pain to the buttocks, and feet returned, spoke with Dr Moreno and new orders placed.
[2021-02-05] MEDS: oxyCODONE HCl Immed Release 5 MG TABLET PO (04:22)
--- NOTE | 2021-02-05 05:19 | PC.NURSE ---
patient continues to be repositioned every two hours. patient is watching TV at this time attempting to fall back to sleep
[2021-02-05 06:30] VITALS: PULSE 83; RESP 17; O2SAT 98
--- NOTE | 2021-02-05 06:40 | PC.NURSE ---
this RN went in to obtain the repeat bloodwork- the patient refuses, the patient reports that hes not letting anyone get blood he wants to go get dialysis and thats it. This RN explained everything to the patient and the reasoning and still refuses. Dr Moreno is aware.
[2021-02-05 07:19] LABS: Glucose, Whole Blood 140 mg/dL (60-115)
--- NOTE | 2021-02-05 07:48 | PC.NURSE ---
report taken from douglas mcmullen pt here for case mgmt bed search, wheelchair bound pt having difficulty caring for self at home. here from dialysis on friday and did not recieve dialysis. per nephro note, pt not requiring emergent dialysis at this time, should have kayexelate to control potassium. no insulin coverage needed at this time. given breakfast tray. pt asking frequently for repositioning in bed. has known coccyx wounds covered by foam dressings, intact at this time.
[2021-02-05] MEDS: Sodium Polystyrene Sulfon/Sorb 15 GM/60 ML ORAL.SUSP 60 GM PO (08:52)
[2021-02-05] MEDS: Insulin Glargine,Hum.rec.anlog 100 UNIT/ML 10 ML VIAL 24 UNIT SUBCUT (08:52)
--- NOTE | 2021-02-05 10:11 | MHC.CM.ED ---
Patient remains in ER. [facility] does not have a bed to offer. Referral broadcasted in [employer]. Patient has [facility], so he will be able to transport to [facility] for HD. Bed offers provided to patient. Patient accepts a bed at [facility]. [facility] aware. Will provide time patient can leave ER. Continue to monitor for d/c needs.
--- NOTE | 2021-02-05 10:36 | PC.NURSE ---
pt frequently using call molina, pt would like frequent repositioning, making frequent inquiries to plan of care, although this rn has frequently updated him on plan of care, awaiting call from tammy iniguez regarding possible placement at facility. colin.
--- NOTE | 2021-02-05 10:42 | MHC.CM.ED ---
Patient can leave ER for [facility] at 1130am. [facility] booked. Med nec with chart. Patient, Michael BISHOP and Dr Branch aware. Continue to monitor for d/c needs.
--- NOTE | 2021-02-05 11:07 | PC.NURSE ---
pt able to assist w turn over, new foam dressing applied to small 1 cm wound on l gluteal fold of buttock, no redness, sweeling or exudate noted.
== END 2021-02-05 11:36 | disposition skilled nursing facility (03) ==
PROVIDERS: Emergency Medicine Emergency Medical Services; Nurse Practitioner Family; Emergency Provider Emergency Medicine; PCP Internal Medicine
DX: L89.329 Pressure ulcer of left buttock, unspecified stage (principal); L97.819 Non-pressure chronic ulcer of other part of right lower leg with unspecified severity; E87.5 Hyperkalemia; Z20.822 Contact with and (suspected) exposure to COVID-19; E11.22 Type 2 diabetes mellitus with diabetic chronic kidney disease; I12.0 Hypertensive chronic kidney disease with stage 5 chronic kidney disease or end stage renal disease; N18.6 End stage renal disease; Z99.2 Dependence on renal dialysis; E78.5 Hyperlipidemia, unspecified; L93.0 Discoid lupus erythematosus; J44.9 Chronic obstructive pulmonary disease, unspecified; F17.210 Nicotine dependence, cigarettes, uncomplicated; Z79.4 Long term (current) use of insulin; Z79.899 Other long term (current) drug therapy
CPT/HCPCS: 36415; 80053; 82947; 85025; 87635; 93005; 96372; 96374; 96375; 97162; 99285

== ENCOUNTER 2022-02-20 14:42 | Outpatient (REF) | payer OTHER, SELFPAY | END 2022-02-20 14:43 | disposition home or self-care (01) | LOC: HO.LAB 14:42 | PROVIDERS: PCP Internal Medicine; Visit Provider Internal Medicine | DX: Z13.89 Encounter for screening for other disorder (principal) ==

== ENCOUNTER 2023-09-01 05:06 | Emergency (ER) | payer MEDICARE, MEDICAID, SELFPAY ==
--- NOTE | ~2023-09-01 | XR_ITS ---
EXAMINATION: XR CHEST CLINICAL INFORMATION: Shortness of breath. Wheezing. COMPARISON: Thoracic spine x-rays of 12/19/2014. TECHNIQUE: Frontal view of the chest was obtained. FINDINGS: The patient is rotated to the left. Left-sided central venous catheter is in place with the tip projecting over the expected location of the superior cavoatrial junction/right atrium. Cardiomediastinal silhouette is unchanged with mild cardiomegaly. There is somewhat abnormal appearance of the medial end of the left clavicle with irregularity of the cortex of the medial and, it is unclear whether this is an artifactual finding or represents erosion in the region. Diffuse interstitial prominence is noted. Stable mild elevation of the right hemidiaphragm. No evidence of dense focal consolidation, significant pleural effusions or pneumothorax. XR/XR chest 1V IMPRESSION: Mild interstitial edema without overt pulmonary edema. Interstitial pneumonitis is in differential. Recommend clinical correlation. No focal consolidation. Somewhat abnormal appearance of the medial end of the left clavicle suggesting possibility of erosion/destruction in the region versus artifact related to patient rotation; artifact is less favored. Recommend clinical correlation and further evaluation as clinically deemed necessary.
[2023-09-01 05:25] VITALS: BP 116/42; PULSE 84; RESP 20; TEMP 36.6; O2SAT 94; BMI 48.7
--- NOTE | 2023-09-01 05:42 | ECG_ITS ---
Test Reason : dyspnea Blood Pressure : / mmHG Vent. Rate : 082 BPM Atrial Rate : 082 BPM P-R Int : 188 ms QRS Dur : 184 ms QT Int : 476 ms P-R-T Axes : 023 118 194 degrees QTc Int : 556 ms Normal sinus rhythm Right bundle branch block Left posterior fascicular block Bifascicular block Anteroseptal infarct (cited on or before 01-SEP-2023) Nonspecific ST and T wave abnormality Abnormal ECG When compared with ECG of 04-FEB-2021 12:08, Left posterior fascicular block is now Present Referred By: Generic ED Physician Electronically Signed By:ZELDA COLE
[2023-09-01 06:15] VITALS: BP 109/53; PULSE 82; RESP 17; O2SAT 97
--- NOTE | 2023-09-01 06:43 | PC.NURSE ---
Unable to obtain labs by either tech or this RN. Suggesting US guided access if provider requires labs.
--- NOTE | 2023-09-01 07:20 | ED_ITS ---
HPI - SOB/Dyspnea General Chief Complaint: Dyspnea Stated Complaint: SOB Time Seen by Provider: 09/01/23 07:07 Source: patient and EMS Mode of arrival: EMS Limitations: no limitations History of Present Illness HPI Narrative: patient comes in for Shortness of breath, recent admission to ICU at [facility] for CHF. All of his care is at [facility]. Normally on 3 L NC elicited complaint: shortness of breath Pertinent past history: COPD, congestive heart failure and diabetes Onset (ago): day(s) Related Data Home Medications Medication Instructions Recorded Confirmed allopurinol 100 mg tablet 100 mg PO DAILY 09/05/20 02/03/21 amlodipine 10 mg tablet 10 mg PO DAILY 09/05/20 02/03/21 carvedilol 12.5 mg tablet 12.5 mg PO BID 09/05/20 02/03/21 gabapentin 800 mg tablet 800 mg PO TID 09/05/20 02/03/21 levothyroxine 75 mcg capsule 75 mcg PO DAILY 09/05/20 02/03/21 sevelamer carbonate 800 mg tablet 2,400 mg PO TID 09/05/20 02/03/21 (Renvela) calcitriol 0.25 mcg capsule 0.5 mcg PO DIRECTED 02/03/21 02/03/21 epoetin mary 20,000 unit/mL 20,000 unit subcut 3XW 02/03/21 02/03/21 injection solution ergocalciferol (vitamin D2) 50,000 50,000 unit PO 7XD 02/03/21 02/03/21 unit tablet insulin glargine 100 unit/mL (3 24 unit subcut BID 02/03/21 02/03/21 mL) subcutaneous pen (Lantus Solostar U-100 Insulin) multivitamin 1 tab PO DAILY 02/03/21 02/03/21 Allergies Allergy/AdvReac Type Severity Reaction Status Date / Time morphine [MORPHINE] Allergy Unknown RASH Verified 09/01/23 05:35 JESCIA Inhibitors Allergy Unknown Verified 09/01/23 05:35 nicotine [From Nicoderm CQ] Allergy Unknown Verified 09/01/23 05:35 atorvastatin [From Lipitor] AdvReac Muscle Verified 09/01/23 05:35 cramps Review of Systems Review of Systems: Yes all other systems are reviewed and are negative Neurologic: Denies Sensory deficit (Neuro) [facility] Past Medical History Medical History Rheumatoid arthritis Lupus erythematosus End stage chronic kidney disease Diabetes COPD (chronic obstructive pulmonary disease) History of infection due to Haemophilus influenzae type B Chronic back pain GERD (gastroesophageal reflux disease) Anemia HTN (hypertension) Hyperlipemia Family History Family History Mother No problems noted. Social History Social History Smoked in Last 30 Days: No Use of substances other than those prescribed or required for medical reasons: No Advance Directives: No Advance Directives Information Provided: No Physical Exam Vital Signs: Vital Signs: Last Vital Signs Temp 97.6 F 09/01/23 09:52 Pulse 76 09/01/23 09:52 Resp 14 09/01/23 09:52 BP 115/45 L 09/01/23 09:52 Pulse Ox 98 09/01/23 09:52 O2 Del Method Nasal Cannula 09/01/23 09:52 O2 Flow Rate 3 09/01/23 09:52 Oxygen Flow Rate 4 09/01/23 05:25 BMI result Body Mass Index 48.7 Const: Other: obese male chronically ill Orientation/consciousness: oriented to person and patient oriented x3 Limitations: no limitations HEENT: Head: Yes normal to inspection Ears: external ears normal General nose exam: Normal external nose present Mouth: Normal oral and palatal mucosa present and oropharynx normal Throat: Yes posterior oropharynx normal Eyes: General: appearance normal, both eyes and all related structures Neck: Other: supple Neck: Yes normal visual inspection Chest: Chest palpation & inspection: normal inspection of the chest Resp: Other: bilateral crackles Cardio: Jugular venous distension: no JVD Rate: regular rate Rhythm: regular rhythm Heart sounds: S1 normal heart sound present and S2 normal heart sound present GI: Inspection: Yes normal to inspection Palpation (GI): Soft to palpation, nontender and No hepatosplenomegaly present Auscultation: normal bowel sounds : General: Yes no CVA tenderness Back/Spine/Pelvis: Back: no CVA tenderness Skin: General skin exam: no rashes or lesions noted Neuro: General: oriented to person and patient oriented x3 Cranial nerves: Yes CN's II-XII intact bilaterally Motor exam (neuro): 5/5 motor strength present throughout Sensory Exam: No Sensory deficit (Neuro) Extrem: Other: chronic leg edema, toe amputations to left foot Psych: Appearance: grossly normal Course Reevaluation(s) Reevaluation #1: Patient now saying the only reason he called EMS was that he broke his nasal c annula and he needed a new one, he does not want to be worked up or admitted. Currently he is on 4L NC Time: 10:14 Medical Decision Making Differential Diagnosis Differential Diagnoses: The differential diagnosis associated with the presentation includes (CHF, renal failure, pneumonia were all considered) Admission/Observation Consideration of admission/observation: Escalation of care including admission/observation considered (upon arrival patient was considered for admission) Independent Interpretation I performed an independent interpretation of an: EKG (sinus 80, RBBB, flipped ts inferrior and lateral) and Plain X-Ray (CXR: interstitial edema consistent with CHF) Radiology Impression Discussion of test interpretation with radiology: I have reviewed the radiologist's reading. (agree with reading) Tests considered The following testing was considered but not selected: blood work and cardiac work up considered but patient refused Prescription Management I considered prescription management with: Antibiotic (no evidence of pneumonia on xray) Chronic Conditions Patient?s care impacted by: Diabetes, Hypertension and Other (dialysis) Discharge Plan Discharge Clinical Impression: ESRD (end stage renal disease), Congestive heart failure Patient Disposition: Home, Self-Care Additional Instructions: you must get your dialysis and return for worsening shortness of breath Prescriptions: No Action calcitriol 0.25 mcg Capsule 0.5 mcg PO DIRECTED Rx Instructions: give every other day ergocalciferol (vitamin D2) 50,000 unit Tablet 50,000 unit PO 7XD Rx Instructions: once a week Lantus Solostar U-100 Insulin 100 unit/mL (3 mL) Insulin Pen 24 unit SUBCUT BID multivitamin Tablet 1 tab PO DAILY epoetin mary 20,000 unit/mL Solution 20,000 unit SUBCUT 3XW Rx Instructions: at dialysis Referrals: Shirin Kirby MD [Primary Care Provider] - 2 days
[2023-09-01 07:47] VITALS: BP 104/42; PULSE 81; RESP 16; TEMP 36.5; O2SAT 95
--- NOTE | 2023-09-01 08:00 | PC.NURSE ---
PT REFUSED NITROPASTE AT THIS TIME. MD MARIE.
[2023-09-01 08:01] VITALS: BP 98/41; PULSE 79; RESP 14; TEMP 36.5; O2SAT 96
--- NOTE | 2023-09-01 09:30 | PC.NURSE ---
Attempted to draw pt in bed 7 one time in the right AC.
[2023-09-01 09:52] VITALS: BP 115/45; PULSE 76; RESP 14; TEMP 36.4; O2SAT 98
--- NOTE | 2023-09-01 09:56 | MHC.EDTECH ---
Patient refuse lab work to be done . Patient stated I prefer to go home then to let anyone try again RN and MD aware
--- NOTE | 2023-09-01 13:14 | MHC.EDTECH ---
Unable to obtain blood work due to patient refusal
== END 2023-09-01 12:45 | disposition home or self-care (01) ==
PROVIDERS: Emergency Provider Emergency Medicine; PCP Internal Medicine
DX: E11.22 Type 2 diabetes mellitus with diabetic chronic kidney disease (principal); I13.11 Hypertensive heart and chronic kidney disease without heart failure, with stage 5 chronic kidney disease, or end stage renal disease; N18.6 End stage renal disease; R06.02 Shortness of breath; I45.10 Unspecified right bundle-branch block; J44.9 Chronic obstructive pulmonary disease, unspecified; Z79.4 Long term (current) use of insulin; Z79.899 Other long term (current) drug therapy
CPT/HCPCS: 71045; 93005; 99283; 99285

== ENCOUNTER → 2023-09-01 05:42 | Outpatient (BNV) | payer MEDICARE, MEDICAID, SELFPAY | PROVIDERS: Emergency Provider Emergency Medicine; PCP Internal Medicine; Visit Provider Internal Medicine | DX: I45.2 Bifascicular block (principal); R94.31 Abnormal electrocardiogram [ECG] [EKG] | CPT/HCPCS: 93010 ==

== ENCOUNTER 2023-09-03 01:13 | Emergency (ER) | payer MEDICARE, MEDICAID, SELFPAY ==
[2023-09-03 01:20] VITALS: BP 110/50; BP 115/49; PULSE 65; PULSE 68; RESP 20; TEMP 36.5; O2SAT 100; BMI 40.4
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
[2023-09-03 04:29] VITALS: BP 98/40; PULSE 65; O2SAT 100
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
--- NOTE | 2023-09-03 08:15 | PC.NURSE ---
pt continuos on sleeping, respirations even and unlabored.
== END 2023-09-03 11:00 | disposition other institution (70) ==
PROVIDERS: Emergency Provider Emergency Medicine; PCP Internal Medicine
DX: J96.11 Chronic respiratory failure with hypoxia (principal); Z99.81 Dependence on supplemental oxygen; E11.22 Type 2 diabetes mellitus with diabetic chronic kidney disease; I12.0 Hypertensive chronic kidney disease with stage 5 chronic kidney disease or end stage renal disease; N18.6 End stage renal disease; Z99.2 Dependence on renal dialysis
CPT/HCPCS: 99284

== ENCOUNTER 2023-09-03 14:49 | Emergency (ER) | payer MEDICARE, MEDICAID, SELFPAY ==
--- NOTE | 2023-09-03 15:10 | ED.GENADULT ---
HPI - General Adult General Chief complaint: Nausea/Vomiting/Diarrhea Stated complaint: WEAK,NAUSEA,VOMITING FROM DIALYSIS 3/4 DONE,ON O2 Time Seen by Provider: 09/03/23 15:00 Source: patient, EMS, RN notes reviewed and old records reviewed Mode of arrival: EMS History of Present Illness HPI narrative: 67-year-old male with past medical history ESRD on HD (M/W/F), hypothyroid, chronic respiratory failure on chronic O2 2.5L, chronic pain, anemia, HTN, presenting to the ED via EMS from dialysis complaining of SOB, abdominal pain, nausea, vomiting, and chest pain upon ED arrival. States received most of his dialysis however was stopped short to to symptoms. Patient was discharged from our facility this morning and transported directly to dialysis s/p hour window at his home and was unable to use his home O2. Denies fever/chills, diarrhea, cough Related Data Home Medications Medication Instructions Recorded Confirmed allopurinol 100 mg tablet 100 mg PO DAILY 09/05/20 02/03/21 amlodipine 10 mg tablet 10 mg PO DAILY 09/05/20 02/03/21 carvedilol 12.5 mg tablet 12.5 mg PO BID 09/05/20 02/03/21 gabapentin 800 mg tablet 800 mg PO TID 09/05/20 02/03/21 levothyroxine 75 mcg capsule 75 mcg PO DAILY 09/05/20 02/03/21 sevelamer carbonate 800 mg tablet 2,400 mg PO TID 09/05/20 02/03/21 (Renvela) calcitriol 0.25 mcg capsule 0.5 mcg PO DIRECTED 02/03/21 02/03/21 epoetin mary 20,000 unit/mL 20,000 unit subcut 3XW 02/03/21 02/03/21 injection solution ergocalciferol (vitamin D2) 50,000 50,000 unit PO 7XD 02/03/21 02/03/21 unit tablet insulin glargine 100 unit/mL (3 24 unit subcut BID 02/03/21 02/03/21 mL) subcutaneous pen (Lantus Solostar U-100 Insulin) multivitamin 1 tab PO DAILY 02/03/21 02/03/21 Allergies Allergy/AdvReac Type Severity Reaction Status Date / Time morphine [MORPHINE] Allergy Unknown RASH Verified 09/01/23 05:35 JESICA Inhibitors Allergy Unknown Verified 09/01/23 05:35 nicotine [From Nicoderm CQ] Allergy Unknown Verified 09/01/23 05:35 atorvastatin [From Lipitor] AdvReac Muscle Verified 09/01/23 05:35 cramps Review of Systems Review of Systems: Constitutional: No Fever, No Chills ENT/Mouth: No Ear Pain, No Nasal Congestion, No Sinus Pain, No Hoarseness, No sore throat, No Rhinorrhea, No Swallowing Difficulty Cardiovascular: +Chest Pain, +SOB Respiratory: No Cough, No Sputum, No Wheezing Gastrointestinal: + Nausea, + Vomiting, No Diarrhea, No Constipation, +Abdominal pain Genitourinary: No Dysuria, No Urinary Frequency Musculoskeletal: No joint pain, No Myalgias, No Joint Swelling Skin: No Skin Lesions, No rash Neuro: + Weakness, No Numbness, No Paresthesias Yes all other systems are reviewed and are negative Constitutional: Constitutional: Reports as per [facility] Past Medical History Attestation statement: The following information was validated with the patient. Source: old records reviewed Medical History Rheumatoid arthritis Lupus erythematosus End stage chronic kidney disease Diabetes COPD (chronic obstructive pulmonary disease) History of infection due to Haemophilus influenzae type B Chronic back pain GERD (gastroesophageal reflux disease) Anemia HTN (hypertension) Hyperlipemia Family History Family History Mother No problems noted. Social History Social History Patient Tobacco Use Status: Never used Tobacco Advance Directives: No Advance Directives Information Provided: No Physical Exam ED Vital Signs: Vital Signs - 24 hr 09/03/23 15:26 Pulse Rate 78 Respiratory Rate 20 Blood Pressure 143/76 H BMI result Body Mass Index 38.0 Const General: cooperative, healthy appearing and no acute distress Orientation/consciousness: patient oriented x3 Limitations: no limitations HENMT Head: Yes normal to inspection and Yes atraumatic Ears: hearing grossly normal bilaterally General nose exam: Normal external nose present Face and sinus: Yes normal facial exam Eyes General: appearance normal, both eyes and all related structures EOM: EOMs intact bilaterally Neck Neck: Yes normal visual inspection and Yes no meningeal signs Resp Effort & Inspection: normal respiratory effort and no respiratory distress Auscultation: crackles bilateral at the base and wheezes expiratory wheezes and throughout Cardio Rate: regular rate Heart sounds: S1 normal heart sound present and S2 normal heart sound present GI Inspection: Yes normal to inspection Palpation (GI): Soft to palpation, Tenderness to palpation present (GI) (Diffusely) with no rebound tenderness, no guarding and not rigid General: Yes no CVA tenderness Back/Spine/Pelvis Back: no CVA tenderness Skin Rashes: no rashes Wounds: no wounds Neuro General: patient oriented x3, tone normal and no meningeal signs Cranial nerves: Yes CN's II-XII intact bilaterally Gait exam (Neuro): Normal gait present Extrem Other: Chronic LE edema, nonpitting General: Yes normal to inspection Course Course Course Narrative: -patient refusing labs/IV, EKG, and DuoNeb. > went and re-evaluated patient states he would like to go home and leave AMA. Patient is A&O x3, competent to make his own decisions. Will sign out AMA. Refusing all care. Always welcome to return to the emergency department Medications Administered Discontinued Medications Generic Name Dose Route Start Last Admin Trade Name Freq PRN Reason Stop Dose Admin Methylprednisolone Sodium Succinate 125 mg 09/03/23 15:08 09/03/23 15:54 Methylprednisolone Sod Succ 125 Mg/2 Ml Vial IVPUSH 09/03/23 15:09 Not Given ONCE ONE Medical Decision Making Medical Decision Making [facility] Narrative: 67-year-old male with past medical history ESRD on HD (M/W/F), hypothyroid, chronic respiratory failure on chronic O2 2.5L, chronic pain, anemia, HTN, presenting to the ED via EMS from dialysis complaining of SOB, abdominal pain, nausea, vomiting, and chest pain upon ED arrival. On exam vital signs stable, satting 97-98% on baseline O2, lungs with diffuse expiratory wheeze and bibasilar crackles, abdomen soft diffusely tender. Concern for COPD exacerbation vs CHF vs ACS vs gastroenteritis/intra-abdominal pathology including appendicitis/diverticulitis. Rule out metabolic and infectious etiologies. Plan: EKG, labs, UA, CT chest/abdomen/pelvis, ED bronch protocol, IV Solu-Medrol, +/- admission Please refer to course for remaining clinical decision making, interpretation of labs/imaging results, and discussions with consultants and/or family members. Differential Diagnosis Differential Diagnoses: The differential diagnosis associated with the presentation includes As above Admission/Observation Consideration of admission/observation: Escalation of care including admission/observation considered Lab Data MDM Lab Attestation statement: I reviewed the patient's lab results. Independent Historian Clinical information obtained from an independent historian. History obtained from or confirmed by: EMS External Record Review External record reviewed: Inpatient record, Office record, Outpatient record, Prior outpatient labs, Prior outpatient radiology, Primary care record and Outside ED record Tests considered The following testing was considered but not selected: As above Chronic Conditions Patient?s care impacted by: Diabetes, Hypertension and Other (ESRD) Discharge Plan Discharge Clinical Impression: Shortness of breath, Abdominal pain, Nausea and vomiting Patient Disposition: Left Against Medical Advice Instructions: Acute Nausea and Vomiting (ED), Abdominal Pain (ED), Shortness of Breath (ED) Additional Instructions: You are leaving against medical advice. Your always welcome to return to the emergency department Please follow-up with her doctor Continue to obtain your dialysis If symptoms persist or worsen please return to the emergency department Prescriptions: No Action calcitriol 0.25 mcg Capsule 0.5 mcg PO DIRECTED Rx Instructions: give every other day ergocalciferol (vitamin D2) 50,000 unit Tablet 50,000 unit PO 7XD Rx Instructions: once a week Lantus Solostar U-100 Insulin 100 unit/mL (3 mL) Insulin Pen 24 unit SUBCUT BID multivitamin Tablet 1 tab PO DAILY epoetin mary 20,000 unit/mL Solution 20,000 unit SUBCUT 3XW Rx Instructions: at dialysis Stand Alone Forms: Against Medical Advice Interventions: ED Discharge Assessment Last Done: 09/03/23 20:49
[2023-09-03 15:26] VITALS: BP 143/76; PULSE 78; RESP 20; BMI 38.0
--- NOTE | 2023-09-03 15:33 | PC.NURSE ---
Addendum entered by Xochitl Wayne RN 09/03/23 15:34: pt vomiting small amount of emesis/nausea during triage. Original Note: pt refusing care. will not allow for IV or blood draw. sts he has been in and out of the hospital all month and is sick of getting poked.
--- NOTE | 2023-09-03 15:42 | MHC.EDTECH ---
pt refused ekg and labs. pt requested to leave Provider and RN aware.
--- NOTE | 2023-09-03 17:33 | PC.NURSE ---
pt requesting another warm blanket. awaiting EMS transport home for 8-9pm.
== END 2023-09-03 20:53 | disposition left against medical advice (07) ==
PROVIDERS: Emergency Provider Emergency Medicine
DX: R11.2 Nausea with vomiting, unspecified (principal); R06.02 Shortness of breath; R10.9 Unspecified abdominal pain; E11.22 Type 2 diabetes mellitus with diabetic chronic kidney disease; I12.0 Hypertensive chronic kidney disease with stage 5 chronic kidney disease or end stage renal disease; N18.6 End stage renal disease; Z99.2 Dependence on renal dialysis; Z53.29 Procedure and treatment not carried out because of patient's decision for other reasons; Z79.4 Long term (current) use of insulin
CPT/HCPCS: 99282